=== PATIENT | male | born 1985 | race Caucasian/White ===

== ENCOUNTER 2017-02-16 00:33 | Emergency (ER) | payer MEDICAID ==
[~2017-02-16] VITALS: Ht 175.3 cm; Wt 94.1 kg
[2017-02-16] MEDS ORDERED: BUPIVACAINE HCL 0.25% 50 ML VIAL ID ONE (01:30)
[2017-02-16] MEDS ORDERED: BUPIVACAINE HCL/PF 0.25% 30 ML VIAL ID ONE (01:45)
[2017-02-16] MEDS ORDERED: BACITRACIN 0.9 GM PACKET OINTMENT TP ONE ×2 (02:30→02:45)
[2017-02-16] MEDS ORDERED: PERTUSS(ACELL),DIPH,TET VAC/PF 0.5 ML VIAL IM ONE (02:45)
[2017-02-16 03:03] VITALS: BP 115/77
== END 2017-02-16 03:04 | disposition home or self-care (01) ==
LOC: EMS 00:36
DX: S61.412A Laceration without foreign body of left hand, initial encounter (principal); F17.210 Nicotine dependence, cigarettes, uncomplicated; F12.90 Cannabis use, unspecified, uncomplicated; Z88.0 Allergy status to penicillin; Z88.1 Allergy status to other antibiotic agents; X58.XXXA Exposure to other specified factors, initial encounter; Y93.89 Activity, other specified; Y92.89 Other specified places as the place of occurrence of the external cause; Y99.8 Other external cause status
CPT/HCPCS: 12002; 90471; 90715; 99283; J3490